=== PATIENT | female | born 1990 | race Caucasian/White ===

== ENCOUNTER → 2018-03-15 14:05 | Observation (INO) ==
[2018-03-15 12:44] LABS: Basophils # 0.1 K/mcL (0.0-0.2); Basophils % 0.4 %; Eosinophils # 0.1 K/mcL (0.0-0.6); Eosinophils % 0.9 %; Hematocrit 37.5 % (35.3-44.9); Hemoglobin 12.4 g/dL (11.5-15.4); Immature Granulocytes % 0.9 % (0-4); Lymphocytes # 2.5 K/mcL (0.6-4.6); Lymphocytes % 19.6 %; Mean Corpuscular HGB Conc 33.1 g/dL (31.6-35.5); Mean Corpuscular Hemoglobin 26.6 pg (28.0-33.3); Mean Corpuscular Volume 80.3 fL (83.0-100.0); Mean Platelet Volume 10.4 fL (9.4-12.4); Monocytes # 0.7 K/mcL (0.0-1.3); Monocytes % 5.6 %; Neutrophils # 9.3 K/mcL (1.6-8.9); Platelet Count 301 K/mcL (140-400); Red Blood Count 4.67 M/mcL (3.82-4.97); Red Cell Distribution Width 13.2 % (11.5-14.5); Segmented Neutrophils % 72.6 %
[2018-03-15 12:45] LABS: Amphetamine Screen,Urine Negative ng/mL (Cutoff=1000); Barbiturate Screen,Urine Negative ng/mL (Cutoff=200)
[2018-03-15 12:46] LABS: Benzodiazepines Screen,Urine Negative ng/mL (Cutoff=300); Cannabinoid Screen,Urine Negative ng/mL (Cutoff = 50); Cocaine Screen,Urine Negative ng/mL (Cutoff= 300); Opiate Screen,Urine Negative ng/mL (Cutoff=300); Phencyclidine Screen,Urine Negative ng/mL (Cutoff=25)
[2018-03-15 12:55] LABS: Protein/Creatinine Ratio,Urine 0.1 mg/mg (0.00-0.20)
[2018-03-15 13:13] LABS: Alanine Aminotransferase 9 Units/L (7-52); Aspartate Amino Transferase 10 Units/L (13-39); BUN/Creatinine Ratio 13 (6-26); Blood Urea Nitrogen 5 mg/dL (6-20); Lactate Dehydrogenase 121 Units/L (140-271); Uric Acid 3.3 mg/dL (2.3-7.6); eGFR For Non-African Americans > 60 (> 60)
--- NOTE | 2018-03-15 13:30 | OB/GYN Progress Note ---
Date of Encounter: 03/15/18 Time of Encounter: 13:29 - Assessment and Plan (1) Elevated blood pressure reading Current Visit: Yes Status: Acute Elevated blood pressure reading in the office. Patient has normal serial blood pressure measurements here in labor and delivery [facility] labs were obtained and were unremarkable. Patient asymptomatic here. Patient was given strict return precautions and specifically for headache, blurry vision, abdominal pain, lower extremity edema, vaginal bleeding, leakage of clear fluid, decreased movement. Patient verbalizes understanding. Dishcharged home. (2) 29 weeks gestation of Current Visit: Yes Status: Acute Subjective - Subjective Principal diagnosis: elevated blood pressure reading Interval history: 28 year old female who is 29 weeks gestation, presents to labor and delivery due to concern for possibility of -induced hypertension. Patient had elevated blood pressure reading at outpatient clinic visit today. Has had no consultations in this . Denies any headache, blurry vision , lower extremity swelling, right upper quadrant abdominal pain. Reports that she is under a lot of stress as her is out of town and she is currently trying to buy a new car. Reports constant movement. Denies any vaginal bleeding, leakage of clear fluid. Antepartum ROS: movement normal, no loss of fluid, no vaginal bleeding Objective - Vital Signs Vital Signs: Intake and Output 03/14/18 03/15/18 03/15/18 23:59 07:59 15:59 Other: Weight 97.1 kg Patient Weight 03/15/18 23:59 Weight 97.1 kg - Exam FHR: category 1 FHR comments: Baseline is 140 Auscultation: bilateral: normal Abdomen: Present: soft, gravid. Absent: distention, tenderness Uterus: Absent: tenderness - Labs Labs: Abnormal lab results WBC 12.9 K/mcL (4.3-11.1) H 03/15/18 12:30 MCV 80.3 fL (83.0-100.0) L 03/15/18 12:30 MCH 26.6 pg (28.0-33.3) L 03/15/18 12:30 Neutrophils # 9.3 K/mcL (1.6-8.9) H 03/15/18 12:30 BUN 5 mg/dL (6-20) L 03/15/18 12:30 Creatinine 0.39 mg/dL (0.60-1.20) L 03/15/18 12:30 AST 10 Units/L (13-39) L 03/15/18 12:30 Lactate Dehydrogenase 121 Units/L (140-271) L 03/15/18 12:30
== END | disposition home or self-care (01) ==
LOC: 1NENULAB
PROVIDERS: ADMIT Advanced Practice Midwife; ATTEND Advanced Practice Midwife

== ENCOUNTER 2018-05-12 05:36 | Inpatient (IN) ==
[~2018-05-12 05:36] MED LIST: *HR* Nalbuphine 10 MG/ML AMPUL IVP PRN; Famotidine 20 MG/2 ML VIAL IVP PRN; Metoclopramide 10 MG/2 ML VIAL IVP PRN; Naloxone 0.4 MG/ML INJ IVP PRN; Ondansetron 4 MG/2 ML VIAL IVP PRN
[2018-05-12] MEDS ORDERED: Ringers Solution, Lactated 1,000 ML IVC SCH (05:45)
[2018-05-12] MEDS ORDERED: EPHEDrine 50 MG/ML VIAL IVP PRN (06:05)
[2018-05-12 06:10] LABS: Basophils # 0.1 K/mcL (0.0-0.2); Basophils % 0.9 %; Eosinophils # 0.2 K/mcL (0.0-0.6); Eosinophils % 1.7 %; Hematocrit 34.9 % (35.3-44.9); Hemoglobin 11.2 g/dL (11.5-15.4); Immature Granulocytes % 0.5 % (0-4); Lymphocytes # 2.6 K/mcL (0.6-4.6); Lymphocytes % 27.3 %; Mean Corpuscular HGB Conc 32.1 g/dL (31.6-35.5); Mean Corpuscular Hemoglobin 24.6 pg (28.0-33.3); Mean Corpuscular Volume 76.5 fL (83.0-100.0); Mean Platelet Volume 11.2 fL (9.4-12.4); Monocytes # 0.7 K/mcL (0.0-1.3); Monocytes % 7.6 %; Neutrophils # 5.8 K/mcL (1.6-8.9); Platelet Count 262 K/mcL (140-400); Red Blood Count 4.56 M/mcL (3.82-4.97); Red Cell Distribution Width 13.7 % (11.5-14.5)
[2018-05-12] MEDS ORDERED: Epidural Premix (fent/bupiv) 110 ML EP SCH (06:15)
[2018-05-12 06:23] LABS: Amphetamine Screen,Urine Negative ng/mL (Cutoff=1000); Barbiturate Screen,Urine Negative ng/mL (Cutoff=200)
[2018-05-12 06:24] LABS: Benzodiazepines Screen,Urine Negative ng/mL (Cutoff=300); Cannabinoid Screen,Urine Negative ng/mL (Cutoff = 50); Cocaine Screen,Urine Negative ng/mL (Cutoff= 300); Opiate Screen,Urine Negative ng/mL (Cutoff=300); Phencyclidine Screen,Urine Negative ng/mL (Cutoff=25)
--- NOTE | 2018-05-12 06:46 | Anesthesia Evaluation PreOp ---
Date of Encounter: 05/12/18 Time of Encounter: 06:42 - Past History Planned Operation: vaginal del, 35wk SROM 0415 Cardiac History: Denies any Significant Hx Pulmonary History: Denies Any Significant HX GREASE REMOVER History: Denies Any Significant HX Other Medical History: Denies Any Significant HX Anesthesia History: No Prior Anesthetic Complications, Past Anesthesia (2 previous epidurals (reports worked good)) Alcohol Use: none Drug use: none Medications and Allergies Vit #108/Iron/FA [ One Tablet] 1 each PO DAILY 03/15/18 [History] Loperamide [Imodium] 1 tab PO PRN PRN 05/12/18 [History] Allergy/AdvReac Type Severity Reaction Status Date / Time No Known Allergies Allergy Verified 05/12/18 05:27 Anesthesia Results - Labs 05/12/18 05:36 Anesthesia Exam - HEENT Pupil (Motor): Pupils equal Mallampati: II Teeth: Normal Oral Opening: Greater than 3 - GREASE REMOVER LOC: Oriented GREASE REMOVER Motor: Normal RUE, Normal LUE, Normal RLE, Normal LLE, Normal Face GREASE REMOVER Sensory: Normal: RUE, LUE, RLE, LLE, Face - Cardiac Rhythm: Regular Murmur: None - Pulmonary Breath Sounds: bilateral Clear Respiratory Effort: Symmetrical Anesthesia Assess/Plan ASA Score: 2 Level of consciousness: Cooperative, Oriented Anesthetic Plan: General, Spinal, Epidural Monitoring Plan: Standard Monitors Recovery Plan: PACU
[2018-05-12] MEDS ORDERED: Lidocaine -MPF 2% 5 ML VIAL ONE (06:53)
--- NOTE | 2018-05-12 07:52 | OB/GYN History & Physical ---
Date of Encounter: 05/12/18 Time of Encounter: 07:15 Assessment and Plan (1) 37 weeks gestation of Current visit: Yes Status: Acute admitted for delivery DR. Callejas aware of patient's status and POC (2) SROM (spontaneous rupture of membranes) Current visit: Yes Status: Acute clear fluid GBS: Negative History of Present Illness Chief complaint: SROM at 37w5d HPI: Ms. Mccarty is a 28 year old female @ 37w5d presents to labor and delivery with complaints of SROM at 0415. Patient reports clear fluid and good movement along with irregular contractions. Patient denies any complications with current or past . Patient receives care with Dr. Strong. Blood type: O+ Rubella: Immune Hep B: Nonreactive GBS: Negative Past Med Surg Social Fam HX - Past Medical History Source: patient Medical history: no medical history, other Psychiatric history: no psych history - Past Surgical History Surgical History: no surgical history - Social History Smoking Status: Former smoker Smokeless Tobacco Status: No Alcohol use: none Drug use: none Current living situation: Home - Independent Activity Level: Independent ambulation Recent Out of Country Travel Within the Last 8 Weeks: No Exposure or Possible Exposure to Illness During Travel: No - Family History Mother Family Member Ethnicity: Non- Living Status: Still Living Hx Family Cardiac Disorders: No Hx Family Respiratory Disorders: No Hx Family Cancer: No Hx Family GI Disorders: No Hx Family Genitourinary Disorders: No Hx Family Endocrine Disorder: No Hx Family Musculoskeletal Disorders: No Hx Family Neuromuscular Disorders: No Hx Family Neurologic Disorders: No Hx Family HEENT Disorders: No Hx Family Autoimmune Disorders: No Hx Family Reproductive Disorders: No Hx Family Psychosocial Disorders: No Hx Family Medical Disorders: No Obstetrical History - Pregnancies : 4 Para: 2 Term: 2 : 0 Ab's: 1 Livin Medications and Allergies Vit #108/Iron/FA [ One Tablet] 1 each PO DAILY 03/15/18 [History] Loperamide [Imodium] 1 tab PO PRN PRN 05/12/18 [History] Allergy/AdvReac Type Severity Reaction Status Date / Time No Known Allergies Allergy Verified 05/12/18 05:27 Review of System OB - Constitutional Constitutional ROS IM: no chills, no fever(s), no headache(s), no night sweats - Cardiovascular Cardiovascular: no chest pain, no lightheadedness, no palpitations, no syncope - Respiratory Respiratory: no dyspnea - Gastrointestinal Gastrointestinal: no abdominal pain, no cramping, no diarrhea, no heartburn, no nausea, no vomiting - Genitourinary Genitourinary: no abnormal vaginal bleeding, no dysuria, no flank pain, no pelvic pain, no urinary frequency, no urinary urgency, no vaginal odor, no vaginal pruritis Exam - Constitutional Constitutional: well developed, well nourished, no acute distress, average body habitus - HEENT HEENT: Normocephaly, Mucus Membranes Moist - Neck Neck exam: full ROM, supple - Lungs Respiratory exam: CTAB - Cardiovascular Cardiovascular exam: RRR, +S1, +S2 - Abdomen Abdomen: Present: bowel sounds normal, gravid, non tender - Extremities Extremities exam: full ROM, normal capillary refill, normal inspection Deep Tendon Reflex Grade: 2+ Normal - Uterus Uterus exam: Present: normal size, normal contour - Comments Comments: FHR 155 bpm moderate variability Results Result Diagrams: 05/12/18 05:36 Abnormal lab results Hgb 11.2 g/dL (11.5-15.4) L 05/12/18 05:36 Hct 34.9 % (35.3-44.9) L 05/12/18 05:36 MCV 76.5 fL (83.0-100.0) L 05/12/18 05:36 MCH 24.6 pg (28.0-33.3) L 05/12/18 05:36 All other labs normal. - VTE Reasons for not Prescribing Prophylaxis: Treatment not Indicated - Low risk for VTE
[2018-05-12] MEDS ORDERED: Oxytocin 20 units/ LR 1000 mL 20 UNIT/1,000 ML BAG IVC SCH (09:30)
--- NOTE | 2018-05-12 10:39 | OB Labor Progress Note ---
Date of Encounter: 05/12/18 Time of Encounter: 10:39 Labor Progress Note - Subjective Subjective: Patient comfortable through contractions. Rates discomfort at 3/10 - Cervix Cervix: 3/70/-2 - Heart Tones Heart Tones: Baseline 140 Moderate variability Accelerations present 15x15 No decelerations FHR Category I - Hephzibah Hephzibah: Contractions every 5+ minutes - Interventions Interventions: SVE Position changes encouraged - Plan Plan: Continue expectant management Frequent position changes Consider IUPC Anticipate Dr. Callejas updated and agrees with POC
--- NOTE | 2018-05-12 16:04 | OB Labor Progress Note ---
Date of Encounter: 05/12/18 Time of Encounter: 16:02 Labor Progress Note - Subjective Subjective: Patient reports slight discomfort with contractions - has received nubain. Rates contractions /10. - Cervix Cervix: 5-6/70/-2 - Heart Tones Heart Tones: FHR Category I - Obert Obert: Contractions per IUPC - inadequate - increase pitocin needed - Interventions Interventions: SVE Position changes frequent - Plan Plan: Continue expectant management Frequent position changes Increase pitocin per protocol Anticipate Dr. Callejas updated on POC and agrees
[2018-05-12] MEDS ORDERED: *HR* FentaNYL (PF) 100 MCG/2 ML VIAL ONE (17:42)
[2018-05-12] MEDS ORDERED: Bupivacaine-MPF 0.25% 10 ML VIAL ONE (17:42)
--- NOTE | 2018-05-12 18:48 | Anesthesia Procedures ---
Addendum entered and electronically signed by Clau Hillman CRNA 05/12/18 23:48: Infant Delivery Date: 05/12/18 Infant Delivery Time: 22:41 Original Note: Date of Encounter: 05/12/18 Time of Encounter: 17:44 Procedures: Anesthesia - Epidural/Spinal Patient ID/Chart reviewed: Yes Patient examined: Yes OB Eval: Gestational age: 37 OB Eval: : 3 OB Eval: Hx Para: 2 OB Eval: Dilated at (cm): 44 OB Eval: Contractions: Non-stressed pattern Consent Obtained: Yes Supplemental Oxygen: None/Room Air Site Prep: Aseptic Technique, Sterile prep and drape, Povidone-Iodine 1% Patient position: upright Local Anesthetic: Lidocaine 1% Amount of Local Anesthetic used: 5 Touhy Needle Gauge: 18 Touhy Needle Depth (cm): 7 Catheter Depth at Skin (cm): 18 Test Dose (1.5% Lido + Epi): Volume given (mls): 3 Test Dose Result: Negative Loading Dose: 0.25% Marcaine (mls): 8 Loading Dose: Fentanyl (mcg): 100 Loading Dose Administered: Thru Catheter Infusion Med: 0.125% Bupivacaine w/ 2 mcg/ml Fentanyl Infusion Rate (mls/hr): [address]: Tegaderm, Tape Interspace Used: L3-L4 Loss of Resistance (SCOTT): Yes Blood: No CSF: No Paresthesia: No Vitals + FHT's: Vital Signs Time 1744 1805 1810 1815 BP 133/65 141/83 128/69 123/70 Pulse 103 114 84 77 FHTs 130 130 130 130
[2018-05-12] MEDS ORDERED: *HR* Ropivacaine/PF 0.5% 20 ML VIAL ONE (21:37)
--- NOTE | 2018-05-12 22:54 | OB/GYN Procedure Note ---
Delivery - Delivery Date: 05/12/18 Provider: Keily Callejas Intrapartum events: none Delivery induction: none Delivery augmentation: pitocin Delivery monitor: external FHT, external uterine, internal uterine Anesthesia: epidural Quantitated Blood Loss: 75 - Infant (s) A Delivery Date: 05/12/18 Delivery Time: 22:41 Presentation: vertex Position: [place] Route of delivery: Gender: Male Viability: Viable Pounds: 7 Ounces: 13 Weight Gram: 3.55 kg at 1 minute: 8 at 5 mins: 9 Shoulder Dystocia: not encountered Specimens collected: cord blood Placenta: spontaneous Cord: 3 umbilical vessels - Repair Episiotomy: none Laceration Description: Periurethral, Superficial (Perineal) - Complications Delivery complications: none Delivery comments: The patient was complete and pushing with epidural anesthesia with a spontaneous vaginal delivery in the FAVIO position of a vigorous male weighing 7 lbs. 13 oz. with Apgars of 8 at 1 minute and 9 at 5 [address] was placed on the maternal abdomen. The cord was clamped and cut after pulsations ceased. Cord blood obtained. The placenta was delivered spontaneous and intact. There is superficial periurethral lacerations were hemostatic and not repaired. There was a superficial perineal laceration which was hemostatic and not repaired. Estimated blood loss 75 mL, complications none
[2018-05-13] MEDS ORDERED: Acetaminophen 325 MG TABLET PO PRN (01:16)
[2018-05-13] MEDS ORDERED: Rho Immune Globulin 1,500 UNIT SYRINGE IM PRN (01:16)
[2018-05-13] MEDS ORDERED: Oxytocin 20 units/ LR 1000 mL 20 UNIT/1,000 ML BAG IVC SCH (01:16)
[2018-05-13 04:54] LABS: Basophils % 0.3 %; Eosinophils # 0.1 K/mcL (0.0-0.6); Eosinophils % 0.5 %; Hematocrit 32.2 % (35.3-44.9); Hemoglobin 10.2 g/dL (11.5-15.4); Immature Granulocytes % 0.6 % (0-4); Lymphocytes # 1.8 K/mcL (0.6-4.6); Lymphocytes % 12.8 %; Mean Corpuscular HGB Conc 31.7 g/dL (31.6-35.5); Mean Corpuscular Hemoglobin 24.6 pg (28.0-33.3); Mean Corpuscular Volume 77.6 fL (83.0-100.0); Mean Platelet Volume 10.7 fL (9.4-12.4); Monocytes # 1.1 K/mcL (0.0-1.3); Monocytes % 7.6 %; Platelet Count 210 K/mcL (140-400); Red Blood Count 4.15 M/mcL (3.82-4.97); Red Cell Distribution Width 13.7 % (11.5-14.5); Segmented Neutrophils % 78.2 %
[2018-05-13 05:02] LABS: Neutrophils # 11.3 K/mcL (1.6-8.9)
--- NOTE | 2018-05-13 08:35 | OB/GYN Progress Note ---
Date of Encounter: 05/13/18 Time of Encounter: 08:33 - Assessment and Plan (1) Vaginal delivery Current Visit: Yes Status: Acute Continue routine care Anticipate discharge home tomorrow Subjective - Subjective Principal diagnosis: Vaginal delivery Interval history: S/P Vaginal delivery day 1 Pain well controlled Lochia light without clots VSS Tolerating regular diet Passing flatus and urinating without difficulty Discharge home tomorrow Patient reports: appetite normal, voiding normally, pain well controlled, ambulating normally [place]: doing well Objective - Latest Vital Signs Latest vital signs: Vital Signs Temp Pulse Pulse Resp BP Pulse Ox 05/13/18 08:32 97.7 F 98 16 128/86 99 05/13/18 03:35 100 05/13/18 02:27 98.4 F 104 104 15 109/60 98 05/13/18 01:21 98.7 F 84 15 114/70 98 Intake and Output 05/12/18 05/13/18 05/13/18 23:59 07:59 15:59 Output Total 75 / 75 Balance -75 / -75 Output: Estimated Blood Loss 75 / 75 Other: Weight 97.3 kg Patient Weight 05/13/18 23:59 Weight 97.3 kg - Exam Lungs: bilateral: normal Chest: Normal S1, Normal S2 Extremities: Present: normal Abdomen: Present: normal appearance, soft, gravid Uterus: Present: normal, firm Uterus Position: At Umbilicus, Midline - Labs Labs: Laboratory Results - last 24 hr 05/13/18 04:38 WBC 14.4 H D RBC 4.15 Hgb 10.2 L Hct 32.2 L MCV 77.6 L MCH 24.6 L MCHC 31.7 RDW 13.7 Plt Count 210 MPV 10.7 Immature Gran % 0.6 Seg Neutrophils % 78.2 Lymphocytes % 12.8 Monocytes % 7.6 Eosinophils % 0.5 Basophils % 0.3 Neutrophils # 11.3 H Lymphocytes # 1.8 Monocytes # 1.1 Eosinophils # 0.1 Basophils # 0.0
[2018-05-13] MEDS: Prenatal Vit/FA 1 EACH TABLET PO SCH (10:28)
[2018-05-13] MEDS: Ibuprofen 600 MG TABLET PO SCH ×2 (10:29→23:35)
--- NOTE | 2018-05-14 08:36 | Discharge Summary ---
Date of Encounter: 05/14/18 Time of Encounter: 08:33 - Discharge Diagnosis (1) 37 weeks gestation of Priority: Secondary Status: Acute (2) SROM (spontaneous rupture of membranes) Priority: Secondary Status: Acute (3) Vaginal delivery Priority: Primary Status: Acute Comments: Continue routine care discharge home today follow up with Dr. Strong in 4-6 weeks - Discharge Medications Home Medications: Vit #108/Iron/FA [ One Tablet] 1 each PO DAILY 03/15/18 [History] Ibuprofen [Motrin] 600 mg PO Q6HR tablet 05/14/18 [Rx] Allergies/Adverse Reactions: Allergy/AdvReac Type Severity Reaction Status Date / Time No Known Allergies Allergy Verified 05/12/18 05:27 Data Procedures and tests throughout hospitalization: Laboratory Tests 05/12/18 05/12/18 05/12/18 05:36 05:36 05:48 WBC 9.4 RBC 4.56 Hgb 11.2 L Hct 34.9 L MCV 76.5 L MCH 24.6 L MCHC 32.1 RDW 13.7 Plt Count 262 MPV 11.2 Immature Gran % 0.5 Seg Neutrophils % 62.0 Lymphocytes % 27.3 Monocytes % 7.6 Eosinophils % 1.7 Basophils % 0.9 Neutrophils # 5.8 Lymphocytes # 2.6 Monocytes # 0.7 Eosinophils # 0.2 Basophils # 0.1 Urine Opiates Screen Negative Ur Barbiturates Screen Negative Ur Phencyclidine Scrn Negative Ur Amphetamines Screen Negative U Benzodiazepines Scrn Negative Urine Cocaine Screen Negative U Marijuana (THC) Screen Negative Ur Drug Screen Interp See Below Hep Bs Antigen Nonreactive 05/13/18 04:38 WBC 14.4 H D RBC 4.15 Hgb 10.2 L Hct 32.2 L MCV 77.6 L MCH 24.6 L MCHC 31.7 RDW 13.7 Plt Count 210 MPV 10.7 Immature Gran % 0.6 Seg Neutrophils % 78.2 Lymphocytes % 12.8 Monocytes % 7.6 Eosinophils % 0.5 Basophils % 0.3 Neutrophils # 11.3 H Lymphocytes # 1.8 Monocytes # 1.1 Eosinophils # 0.1 Basophils # 0.0 Urine Opiates Screen Ur Barbiturates Screen Ur Phencyclidine Scrn Ur Amphetamines Screen U Benzodiazepines Scrn Urine Cocaine Screen U Marijuana (THC) Screen Ur Drug Screen Interp Hep Bs Antigen Date of admission: 05/12/18 05:36 Primary care physician: Erich Raza MD Consults: 05/13/18 01:16 Consult to Therapeutic Recreation Specialist [CONS] Routine Comment: Vaginal delivery, consult needed Discharging clinician: Shantal Hernandez Anticipated date of discharge: 05/14/18 - Patient Status Disposition: Home, Self-Care Condition: Good Functional capacity at discharge: independent ambulation - Discharge Instructions Follow Up With: Erich Raza MD [Primary Care Provider] - Natalie Strong DO [Partnered Physician] - - Diet and Activity Activity: increase activity as tolerated Diet: regular diet Hospital Course Reason for admission: rupture of membranes Delivery: Episiotomy: none Other procedures: none complications: none Discharge diagnosis: IUP at term delivered [place] baby: male (bottle feeding) Time Attestation: Total time spent providing and/or coordinating discharge services: Time Spent: Less than 30 minutes Exam - Constitutional Vitals: Temp Pulse Resp BP Pulse Ox 97.7 F 77 16 123/81 98 05/13/18 21:55 05/13/18 21:55 05/13/18 21:55 05/13/18 21:55 05/13/18 21:55 General appearance IM: A&O X 3, pleasant, answers questions appropriately - Respiratory Respiratory exam: Present: CTAB - Cardiovascular Cardiovascular exam IM: Present: RRR, +S1, +S2 - GI/Abdominal GI/Abdominal exam IM: normal bowel sounds - Uterine Tone: Firm Uterus Position: At Umbilicus, Midline - Extremities Exam Extremities exam IM: Present: full ROM, normal capillary refill, normal inspection - Neurological Exam Neurological exam: alert, oriented X3, reflexes normal
[2018-05-14 08:43] VITALS: BP 116/84
[2018-05-14] MEDS: Ibuprofen 600 MG TABLET PO SCH (09:14)
[2018-05-14] MEDS: Prenatal Vit/FA 1 EACH TABLET PO SCH (09:15)
== END 2018-05-14 11:24 | disposition home or self-care (01) | DRG 807 ==
LOC: 1NENULAB → 1NENUOBS 05-13 01:14
PROVIDERS: ADMIT Advanced Practice Midwife; ATTEND Advanced Practice Midwife